=== PATIENT | female | born 1955 | race Caucasian/White ===

== ENCOUNTER 2019-08-26 16:24 | Emergency (ER) | payer BC ==
--- NOTE | 2019-08-26 16:43 | ERPHSYRPT ---
- History of Present Illness Time Seen by Provider: 08/26/19 16:42 Source: patient Exam Limitations: no limitations Patient Subjective Stated Complaint: pt states that she fell off her porch, when she fell she states that she heard a pop, pt states that she did not have swelling to feet today, pt stated that she was unable to put weight on her ankle after fall, pt states 3/10 pain to left ankle Triage Nursing Assessment: pt came to er via ambulance, pt has swelling and disformation to left ankle, postive pulse above and below injury, quick cap refill, vitals wnl, Physician History: 63 y/o obese white female fell after stepping off porch step. pt heard/felt a pop left ankle. also right ankle rolled. pt could bear weight on right side but not on left. Method of Injury: twisted Occurred: just prior to arrival Quality: aching, throbbing Severity of Pain-Max: mild Severity of Pain-Current: mild Modifying Factors: Improves With: movement Associated Symptoms: popping sensation (left) Allergies/Adverse Reactions: Sulfa (Sulfonamide Antibiotics) Allergy (Verified 08/26/19 16:39) WAS TOLD BY HER MOTHER THAT SHE WAS ALLERGIC Home Medications: Ibuprofen [IBUPROFEN 400 MG TABLET] 2 tablet PO Q12H PRN PRN 03/27/14 [History] Aspirin 81 mg PO DAILY 04/19/14 [History] Benazepril HCl [Lotensin] 20 mg PO DAILY 04/19/14 [History] Amlodipine Besylate 5 mg PO DAILY 08/26/19 [History] Atorvastatin Calcium 10 mg PO HS 08/26/19 [History] Chlorthalidone 25 mg PO DAILY 08/26/19 [History] Metformin HCl 1,000 mg PO BID 08/26/19 [History] Omeprazole 40 mg PO DAILY 08/26/19 [History] glipiZIDE [Glipizide] 10 mg PO DAILY 08/26/19 [History] Hx Tetanus, Diphtheria Vaccination/Date Given: No Hx Influenza Vaccination/Date Given: No Hx Pneumococcal Vaccination/Date Given: No - Review of Systems Constitutional: No Symptoms Eyes: No Symptoms Ears, Nose, & Throat: No Symptoms Respiratory: No Symptoms Cardiac: No Symptoms Abdominal/Gastrointestinal: No Symptoms Genitourinary Symptoms: No Symptoms Musculoskeletal: Fall, Injury (bilat ankles) Skin: No Symptoms Neurological: No Symptoms Psychological: No Symptoms Endocrine: No Symptoms Hematologic/Lymphatic: No Symptoms Immunological/Allergic: No Symptoms All Other Systems: Reviewed and Negative - Past Medical History Pertinent Past Medical History: Yes Neurological History: No Pertinent History ENT History: No Pertinent History Cardiac History: Hypertension Respiratory History: Asthma, Bronchitis, Pneumonia Endocrine Medical History: Diabetes Type II Musculoskeletal History: No Pertinent History GI Medical History: Gallbladder Disease Psycho-Social History: No Pertinent History Female Reproductive Disorders: Other Other Medical History: RT HAND SWELLING, hysterectomy - Past Surgical History Past Surgical History: Yes Gastrointestinal: Cholecystectomy Female Surgical History: Section, Hysterectomy - Social History Smoking Status: Former smoker How long have you smoked: 14 years Exposure to second hand smoke: No Drug Use: none Patient Lives Alone: Yes - Female History Hx Now: No - Nursing Vital Signs Nursing Vital Signs: Initial Vital Signs Temperature 98.8 F 08/26/19 16:25 Pulse Rate 81 08/26/19 16:25 Respiratory Rate 15 08/26/19 16:25 Blood Pressure 122/102 08/26/19 16:25 O2 Sat by Pulse Oximetry 92 L 08/26/19 16:25 Pain Scale Pain Intensity 0 - Physical Exam General Appearance: no apparent distress, alert, anxiety Eyes, Ears, Nose, Throat Exam: normal ENT inspection, moist mucous membranes Neck Exam: normal inspection, non-tender, supple, full range of motion Cardiovascular/Respiratory Exam: chest non-tender Gastrointestinal/Abdominal Exam: non-tender Back Exam: normal inspection, normal range of motion, vertebral tenderness, No CVA tenderness Hips Exam: bilateral: non-tender, normal inspection, normal range of motion, no evidence of injury Legs Exam: bilateral leg: non-tender, normal inspection, normal range of motion , no evidence of injury Knees Exam: bilateral knee: non-tender, normal inspection, normal range of motion, no evidence of injury Ankle Exam: bilateral ankle: limited range of motion, pain, soft tissue tenderness, swelling Foot Exam: bilateral foot: non-tender, normal inspection, normal range of motion , no evidence of injury Neuro/Tendon Exam: normal sensation, normal motor functions, normal tendon functions, responds to pain Mental Status Exam: alert, oriented x 3, cooperative Skin Exam: normal color, warm, dry SpO2 Interpretation: borderline oxygenation SpO2: 92 O2 Delivery: Room Air Procedures - Splinting Location of Splint: Left, Right (ankle), Ankle Type of Splint: Orthoglass Short Leg Splint Splint Applied By: ED Nurse Pre-Proc Neuro Vasc Exam: normal Post-Proc Neuro Vasc Exam: neurovascular intact, good alignment Ordered Tests: Active Orders 24 hr Category Date Time Status IV Insertion STAT Care 08/26/19 17:33 Active Splint STAT Care 08/26/19 17:51 Active Splint STAT Care 08/26/19 17:52 Active ANKLE (3 VIEWS) Stat Exams 08/26/19 16:43 Taken ANKLE (3 VIEWS) Stat Exams 08/26/19 16:43 Taken ANKLE (3 VIEWS) Stat Exams 08/26/19 18:11 Taken CBC Stat Lab 08/26/19 19:38 Ordered CMP Stat Lab 08/26/19 19:38 Ordered Medication Summary Discontinued Medications Generic Name Dose Route Start Last Admin Trade Name Freq PRN Reason Stop Dose Admin Hydromorphone HCl 1 mg 08/26/19 17:33 08/26/19 17:53 Hydromorphone 1 Mg/Ml Ampule IV 08/26/19 17:34 1 mg STAT ONE Administration Hydromorphone HCl Confirm 08/26/19 17:51 Hydromorphone 1 Mg/Ml Ampule Administered 08/26/19 17:52 Dose 1 mg .ROUTE .STK-MED ONE Ondansetron HCl 4 mg 08/26/19 17:33 08/26/19 17:53 Zofran 4 Mg/2 Ml Vial IV 08/26/19 17:34 4 mg STAT ONE Administration Ondansetron HCl Confirm 08/26/19 17:50 Zofran 4 Mg/2 Ml Vial Administered 08/26/19 17:51 Dose 4 mg .ROUTE .STK-MED ONE - Progress Progress: improved, pain not gone completely, re-examined Progress Note: 08/26/19 17:30 xray right ankle-nondisplaced right distal fibula; xray left ankle-displaced fx distal fibula and tibia. 08/26/19 19:34 at 1720 called ortho logging operations inspector. dr. egan orthopedic surgeon returned call at 1830. he states pt needs to be admitted, pain control. surgery likely for left ankle and not for right ankle. he states call hospitalist and consult him. 08/26/19 20:01 spoke with [facility] hospitalist, dr. silver. he accepts pt in transfer. Counseled pt/family regarding: diagnosis, need for follow-up, rad results - Departure Departure Disposition: Transfer Clinical Impression: Fracture of fibula, right, closed, Closed fracture of distal end of left fibula and tibia Condition: Stable Critical Care Time: No Referrals: BALTA EGAN [Primary Care Provider] -
[2019-08-26] MEDS ORDERED: Hydromorphone 1 mg/ml Ampule IV ONE (17:33)
[2019-08-26] MEDS ORDERED: Zofran 4 MG/2 ML VIAL IV ONE (17:33)
[2019-08-26] MEDS ORDERED: Zofran 4 MG/2 ML VIAL ONE (17:50)
[2019-08-26] MEDS ORDERED: Hydromorphone 1 mg/ml Ampule ONE (17:51)
[2019-08-26 20:05] LABS: Hematocrit 32.2 % (35-47); Hemoglobin 10.1 gm/dl (12.0-16.0); Mean Cell Volume 85.9 fl (78-100); Mean Corpuscular Hemoglobin 26.9 pg (26-32); Mean Corpuscular Hgb Concent. 31.4 g/dl (32-36); Mean Platelet Volume 9.9 fl (6-9.5); Platelet Count 376 K/mm3 (150-450); Red Blood Count 3.75 M/mm3 (4.1-5.4); Red Cell Distribution Width 15.6 % (11.5-14.0); White Blood Count 10.7 K/mm3 (4.0-10.5)
[2019-08-26 20:19] LABS: ALBUMIN 4.2 g/dL (3.5-5.0); ANION GAP 15.8 MEQ/L (5-15); BILIRUBIN,TOTAL 0.3 mg/dL (0.2-1.3); Calcium 9.8 mg/dL (8.4-10.2); Creatinine 1 1.53 mg/dL (0.52-1.04); Potassium 4.1 mmol/L (3.5-5.1); Total Protein 7.4 g/dL (6.3-8.2)
[2019-08-26 21:35] VITALS: BP 126/82; PULSE 80; O2SAT 94
--- NOTE | 2019-08-27 08:50 | XRAY ---
Indication: Pain following injury. Comparison: None 3 views of the left ankle demonstrates comminuted/angulated fracture of the distal tibia shaft and angulated fracture of the adjacent fibula with soft tissue swelling. Incidental small cuboid accessory ossicle. No other bony, articular, or soft tissue abnormalities.
--- NOTE | 2019-08-27 08:52 | XRAY ---
Indication: Post reduction. Comparison: Taken earlier in the day. 3 views of the left ankle demonstrates new posterior splint material. Distal tibia/fibula fractures are improved in apposition/alignment, near-anatomic. Stable soft tissue swelling and heel spurs. Remaining ankle unremarkable.
--- NOTE | 2019-08-27 08:54 | XRAY ---
Indication: Pain following injury. Comparison: None 3 views of the right ankle demonstrates nondisplaced fractures of the lateral malleolus and base 5th metatarsal with soft tissue swelling. Incidental tiny medial malleolus tip heterotopic ossification and small heel spurs. Remaining ankle unremarkable.
== END 2019-08-26 21:35 | disposition short-term general hospital (02) ==
LOC: ED 16:24
DX: S82.401A Unspecified fracture of shaft of right fibula, initial encounter for closed fracture (principal); S82.832A Other fracture of upper and lower end of left fibula, initial encounter for closed fracture; S82.302A Unspecified fracture of lower end of left tibia, initial encounter for closed fracture; W10.8XXA Fall (on) (from) other stairs and steps, initial encounter; X50.1XXA Overexertion from prolonged static or awkward postures, initial encounter; Y93.9 Activity, unspecified; I10 Essential (primary) hypertension; E11.9 Type 2 diabetes mellitus without complications; Z79.899 Other long term (current) drug therapy
CPT/HCPCS: 29505; 36000; 36415; 73610; 80053; 85027; 96374; 99285; J1170; J2405

== ENCOUNTER 2019-10-10 06:40 | Day surgery (SDC) | payer BC ==
[~2019-10-10 06:40] MED LIST: Lactated Ringers 1,000 ML IV SCH
[2019-10-10] MEDS ORDERED: Lactated Ringers 1,000 ML IV ONE (07:07)
[2019-10-10] MEDS ORDERED: DIPRIVAN 200 MG/20 ML IV ONE (07:53)
[2019-10-10 08:40] VITALS: O2SAT 95
--- NOTE | 2019-10-10 08:54 | OP ---
SURGERY DATE/TIME: 10/10/2019 0753 PREOPERATIVE DIAGNOSIS: Nausea. POSTOPERATIVE DIAGNOSIS: Moderate gastritis. PROCEDURE: Esophagogastroduodenoscopy biopsy with cold forceps. SURGEON: Dr. Alfaro. ANESTHESIA: Medications were given by the anesthesia department. BRIEF HISTORY: The patient is a 63 year old who presents now for chronic nausea. She reports that this dates back to approximately two months ago at which time she had broken her leg. She spent five days at [facility] and time at [facility]. She reports the nausea continued to get worse. She reports that she was taking ibuprofen two tablets a day prior to the time she broke her leg but has not been taking it since that time. She also reports previous cholecystectomy in 2009. The patient denies any bowel changes otherwise. The patient was felt the need to have endoscopic evaluation. She was appraised of the risks of the procedure including the risk of perforation, phlebitis, untoward reaction to medication, bleeding and missed lesions. The patient verbalized her understanding and desired to have the procedure performed. DESCRIPTION OF PROCEDURE: The patient was given the medications by the anesthesia department. She had continuous pulse oximetry, ECG monitoring, intermittent blood pressure monitoring and tidal CO2 monitoring during the examination. She was placed in the left lateral decubitus position. A bite block was placed and the flexible Olympus gastroscope was used to intubate the oropharynx. A view of the larynx was obtained and was normal. The scope was easily introduced in the esophagus which appeared to be normal throughout its length. The stomach was entered where normal gastric rugal folds were seen and these distended nicely with insufflation of air. The scope was passed along the greater curvature of the stomach to the antrum which appeared to be moderately erythematous. No erosions or ulcerations were encountered. The pylorus was encountered and intubated. The duodenum inspected and found to be normal. The scope is withdrawn towards the stomach. A retroflex view was obtained of the lesser curvature, fundus and cardia regions of the stomach and these appeared to be essentially normal. The scope was then redirected towards the gastric antrum and biopsies were obtained using cold biopsy forceps to rule out the presence of Helicobacter pylori-type organisms. The scope was then removed from the patient who tolerated the procedure well and was sent back to the hospital [facility] in good condition.
[2019-10-10 09:12] VITALS: BP 132/72; PULSE 64
== END 2019-10-10 08:55 | disposition home or self-care (01) ==
LOC: SDC 06:40
PROVIDERS: ATTEND Family Medicine
DX: K29.70 Gastritis, unspecified, without bleeding (principal); K21.9 Gastro-esophageal reflux disease without esophagitis; E11.9 Type 2 diabetes mellitus without complications; I10 Essential (primary) hypertension; J44.9 Chronic obstructive pulmonary disease, unspecified; Z79.899 Other long term (current) drug therapy
CPT/HCPCS: 82962; J2704

== ENCOUNTER 2019-11-24 10:59 | Emergency (ER) | payer BC ==
--- NOTE | 2019-11-24 11:16 | ERPHSYRPT ---
- History of Present Illness Time Seen by Provider: 11/24/19 11:13 Source: patient Exam Limitations: no limitations Patient Subjective Stated Complaint: pt here for sob ,cough and dizziness today , she has been sob since sunday and was seen and has a cxr, she was placed on antiboitcs at the time,. she states when she got up this morning she about passed out ,she is not taking her metformin , she recently had bilat tib/fib fracture 08/2019 and had surgery Triage Nursing Assessment: pt alert, resp easy, skin w/d/pale , moves all ext well, strong radial pulse Physician History: the patient is a 63-year-old female with a past medical history significant for diabetes mellitus and hypertensionwho presents with a chief complaint near syncope. Onset was around 10:30 this morning. She states that she just had been using the bathroom, specifically urinating when she was washing her hands at the sink and felt lightheaded as if she was going to pass out. She then sat on the floor for a moment before her symptoms resolved. She does have some dizziness with standing that would resolve whenever she would sit down or lie flat. Of note, the patient reportedly started having some shortness of breath and a cough last Sunday and was seen at an urgent care and had a chest x-ray that was reportedly normal but was started empirically on antibiotic therapy, specifically Cipro which she was told to take for 10 days. She denies fever, chills, productive cough, hemoptysis, history of DVT/PE, heart disease, chest pain, nausea, vomiting upper pole he is had some diarrhea over the past week and decreased appetite because the antibiotic reportedly has decreased her ability to "taste". Of note, the patient also endorsed have a 30 pound weight loss since she had her leg fracture last fall/summer and has not had any dose adjustment in her antihypertensives. She's not starting any additional new medications or had any recent increase in her antihypertensives. She reports that she's not been taking her metformin as prescribed. Timing/Duration: today Associated Symptoms: shortness of breath, cough, other (Near syncope), No nausea , No vomiting, No abdominal pain, No chest pain, No fever, No headaches, No loss of appetite, No rash Allergies/Adverse Reactions: Sulfa (Sulfonamide Antibiotics) Allergy (Verified 11/24/19 11:09) WAS TOLD BY HER MOTHER THAT SHE WAS ALLERGIC Home Medications: Benazepril HCl [Lotensin] 20 mg PO DAILY 04/19/14 [History] Amlodipine Besylate 5 mg PO DAILY 08/26/19 [History] Atorvastatin Calcium 10 mg PO HS 08/26/19 [History] Metformin HCl 1,000 mg PO BID 08/26/19 [History] glipiZIDE [Glipizide] 10 mg PO DAILY 08/26/19 [History] Tramadol HCl 50 mg [Ultram 50 mg] 50 mg PO Q8H PRN PRN 10/10/19 [History] Doxycycline Hyclate 1 ea BID 11/24/19 [History] Omeprazole 40 mg DAILY 11/24/19 [History] Hx Tetanus, Diphtheria Vaccination/Date Given: No Hx Influenza Vaccination/Date Given: No Hx Pneumococcal Vaccination/Date Given: No Immunizations Up to Date: Yes - Review of Systems Constitutional: No Fever, No Chills Eyes: No Symptoms Ears, Nose, & Throat: No Symptoms, No Nose Congestion Respiratory: Cough, Dyspnea, Dyspnea on Exertion (BANEGAS), No Stridor, No Wheezing Cardiac: No Chest Pain, No Edema, No Palpitations, No Syncope, No PND Abdominal/Gastrointestinal: Diarrhea, Appetite Changes, No Nausea, No Vomiting Genitourinary Symptoms: No Symptoms Musculoskeletal: No Symptoms Neurological: Dizziness, No Headache Psychological: No Symptoms Endocrine: No Symptoms Hematologic/Lymphatic: No Symptoms Immunological/Allergic: No Symptoms All Other Systems: Reviewed and Negative - Past Medical History Pertinent Past Medical History: Yes Neurological History: No Pertinent History ENT History: No Pertinent History Cardiac History: High Cholesterol, Hypertension Respiratory History: Bronchitis Endocrine Medical History: Diabetes Type II Musculoskeletal History: Fractures GI Medical History: Gallbladder Disease History: No Pertinent History Psycho-Social History: No Pertinent History Female Reproductive Disorders: Other Other Medical History: SX HX: CHOLESTECTOMY, HYSTERECTOMY - Past Surgical History Past Surgical History: Yes Neuro Surgical History: No Pertinent History Cardiac: No Pertinent History Respiratory: Chest Surgery Gastrointestinal: Cholecystectomy Genitourinary: No Pertinent History Musculoskeletal: Orthopedic Surgery, Other Female Surgical History: Section, Hysterectomy Other Surgical History: L big toe reattached, surgical fixation of L leg - Social History Smoking Status: Former smoker How long have you smoked: 14 years Exposure to second hand smoke: No Drug Use: none Patient Lives Alone: Yes - Female History Hx Last Menstrual Period: post Hx Now: No - Nursing Vital Signs Nursing Vital Signs: Initial Vital Signs Temperature 97.4 F 11/24/19 11:00 Pulse Rate 102 H 11/24/19 11:00 Respiratory Rate 20 11/24/19 11:00 Blood Pressure 98/78 11/24/19 11:00 O2 Sat by Pulse Oximetry 94 L 11/24/19 11:00 Pain Scale Pain Intensity 0 - Physical Exam General Appearance: no apparent distress, alert Eye Exam: PERRL/EOMI Ears, Nose, Throat Exam: normal ENT inspection Neck Exam: normal inspection, supple, No JVD Respiratory Exam: normal breath sounds, lungs clear, airway intact, No chest tenderness, No respiratory distress, No diminished breath sounds, No accessory muscle use, No prolonged expirations, No crackles/rales, No rhonchi, No wheezing , No pleural rub Cardiovascular Exam: normal peripheral pulses, tachycardia, capillary refill <2 sec, No murmur, No friction rub Gastrointestinal/Abdomen Exam: soft, No tenderness, No distention Rectal Exam: deferred Back Exam: normal inspection Extremity Exam: normal inspection Neurologic Exam: alert, oriented x 3, cooperative Skin Exam: normal color, warm, dry, rash, No petechiae, No jaundice SpO2 Interpretation: normal SpO2: 94 O2 Delivery: Room Air - Course Nursing assessment & vital signs reviewed: Yes EKG Interpreted by Me: RATE, Sinus Rhythm, Right [place] Deviation, Right Bundle Branch Block, Q-wave, NORMAL ST-T - Radiology Exams Chest X-ray Interpretation: Reviewed by me, Negative Ordered Tests: Active Orders 24 hr Category Date Time Status Supervisor Slitting And Shipping STAT Care 11/24/19 11:15 Active EKG-ER Only STAT Care 11/24/19 11:15 Active IV Insertion STAT Care 11/24/19 11:15 Active CHEST 2 VIEWS (PA AND LAT) Stat Exams 11/24/19 12:11 Completed PULMONARY PERF VENTILATION [NUCMED] Stat Exams 11/24/19 12:21 Completed BMP Stat Lab 11/24/19 11:34 Completed BMP Stat Lab 11/24/19 16:45 Completed CBC W DIFF Stat Lab 11/24/19 11:34 Completed D-DIMER QUANTITATIVE Stat Lab 11/24/19 12:11 Completed NT PRO BNP Stat Lab 11/24/19 11:34 Completed PROTIME WITH INR Stat Lab 11/24/19 12:11 Completed PTT Stat Lab 11/24/19 12:11 Completed TROPONIN Stat Lab 11/24/19 11:34 Completed TROPONIN Stat Lab 11/24/19 16:45 Completed Medication Summary Discontinued Medications Generic Name Dose Route Start Last Admin Trade Name Freq PRN Reason Stop Dose Admin Enoxaparin Sodium 90 mg 11/24/19 12:18 11/24/19 12:40 Enoxaparin Sodium 1 mg/kg (90 mg) 11/24/19 12:19 90 mg SQ Administration ONCE STA Enoxaparin Sodium Confirm 11/24/19 12:40 Enoxaparin Sodium Administered 11/24/19 12:41 Dose 120 mg SQ .STK-MED ONE Sodium Chloride 1,000 mls @ 999 mls/hr 11/24/19 11:26 11/24/19 13:15 Sodium Chloride 0.9% 1000 Ml IV 11/24/19 12:26 Infused .Q1H1M STA Infusion Sodium Chloride Confirm 11/24/19 11:32 Sodium Chloride 0.9% 1000 Ml Administered 11/24/19 11:33 Dose 1,000 mls @ ud .ROUTE .STK-MED ONE Sodium Chloride 1,000 mls @ 999 mls/hr 11/24/19 11:45 11/24/19 13:16 Sodium Chloride 0.9% 1000 Ml IV 11/24/19 12:45 Infused .Q1H1M STA Infusion Sodium Chloride Confirm 11/24/19 12:40 Sodium Chloride 0.9% 1000 Ml Administered 11/24/19 12:41 Dose 1,000 mls @ ud .ROUTE .STK-MED ONE Lab/Rad Data: Laboratory Result Diagrams 11/24/19 11:34 11/24/19 16:45 Laboratory Results 11/24/19 11/24/19 11/24/19 Range/Units 16:45 16:45 12:11 WBC (4.0-10.5) K/mm3 RBC (4.1-5.4) M/mm3 Hgb (12.0-16.0) gm/dl Hct (35-47) % MCV (78-100) fl MCH (26-32) pg MCHC (32-36) g/dl RDW (11.5-14.0) % Plt Count (150-450) K/mm3 MPV (7.5-11.0) fl Gran % (36.0-66.0) % Eos # (Auto) (0-0.5) Absolute Lymphs (auto) (1.0-4.6) Absolute Monos (auto) (0.0-1.3) Lymphocytes % (24.0-44.0) % Monocytes % (0.0-12.0) % Eosinophils % (0.00-5.0) % Basophils % (0.0-0.4) % Absolute Granulocytes (1.4-6.9) Basophils # (0-0.4) PT 13.1 H (9.95-12.35) SECONDS INR 1.16 (0.8-3.0) APTT 26.2 (25.3-37.0) SECONDS D-Dimer 35510 H* (215-500) ng/mL Sodium 136 L (137-145) mmol/L Potassium 3.7 (3.5-5.1) mmol/L Chloride 99 (98-107) mmol/L Carbon Dioxide 23 (22-30) mmol/L Anion Gap 17.4 H (5-15) MEQ/L BUN 30 H (7-17) mg/dL Creatinine 1.63 H (0.52-1.04) mg/dL Estimated GFR 34.0 ML/MIN Glucose 287 H (74-106) mg/dL Calcium 9.7 (8.4-10.2) mg/dL Troponin I 0.079 H* (0.000-0.034) ng/mL NT-Pro-B Natriuret Pep (0-900) pg/mL 11/24/19 11/24/19 Range/Units 11:34 11:34 WBC 11.7 H (4.0-10.5) K/mm3 RBC 4.40 (4.1-5.4) M/mm3 Hgb 11.8 L (12.0-16.0) gm/dl Hct 36.6 (35-47) % MCV 83.2 (78-100) fl MCH 26.8 (26-32) pg MCHC 32.2 (32-36) g/dl RDW 14.6 H (11.5-14.0) % Plt Count 273 (150-450) K/mm3 MPV 11.4 H (7.5-11.0) fl Gran % 78.4 H (36.0-66.0) % Eos # (Auto) 0.11 (0-0.5) Absolute Lymphs (auto) 1.73 (1.0-4.6) Absolute Monos (auto) 0.64 (0.0-1.3) Lymphocytes % 14.8 L (24.0-44.0) % Monocytes % 5.5 (0.0-12.0) % Eosinophils % 0.9 (0.00-5.0) % Basophils % 0.4 (0.0-0.4) % Absolute Granulocytes 9.13 H (1.4-6.9) Basophils # 0.05 (0-0.4) PT (9.95-12.35) SECONDS INR (0.8-3.0) APTT (25.3-37.0) SECONDS D-Dimer (215-500) ng/mL Sodium 134 L (137-145) mmol/L Potassium 3.3 L (3.5-5.1) mmol/L Chloride 96 L (98-107) mmol/L Carbon Dioxide 22 (22-30) mmol/L Anion Gap 19.8 H (5-15) MEQ/L BUN 30 H (7-17) mg/dL Creatinine 1.81 H (0.52-1.04) mg/dL Estimated GFR 30.1 ML/MIN Glucose 368 H (74-106) mg/dL Calcium 9.7 (8.4-10.2) mg/dL Troponin I 0.061 H* (0.000-0.034) ng/mL NT-Pro-B Natriuret Pep 5760 H (0-900) pg/mL - Progress Progress: improved Progress Note: 11/24/19 12:39 the patient's troponin is mildly elevated with an increased BNP in addition to some hypertension and hypoxia and shortness of breath. The patient overall does not appear to be line overloaded. The nurses not obtain EKG as if he had otherwise been ordered some time ago. Differential this time includes ACS, 6 new-onset CHF, for possible so massive PE. She does have some evidence of CT in radiology when I perform a CT of her chest with a creatinine of 1.8. A car ahead of her cardiac echo regular rate with Lovenox in radiology he is able to perform a VQ scan this afternoon. possibility patient's orthostasis may be related to her antihypertensive use in addition to having some volume depletion from her reported diarrhea in addition to her report a 30 pound weight loss she' s had over the past few months since her diagnosis of a broken tibia/fibula. This also may be contributing to her symptoms and therefore IV fluids were ordered. 11/24/19 13:12 the patient's chest x-ray is negative with the exception of some hyperexpansion and her d-dimer is 18,000. Given that her troponin is mildly elevated in addition to an elevated BNP negative chest x-ray and some shortness of breath with some intermittent hypoxia that is now resolved with a nasal cannula am highly suspicious the patient may have a submassive PE. Again radiology will not obtain a CT of her chest because of her creatinine being 1.8. VQ scan is currently pending. The patient received her Lovenox. 11/24/19 14:36 Nuclear Medicine is now in the ED to take the patient did a VQ scan 11/24/19 15:26 The patient is being wheeled back from radiology and just got her V/Q scan awaiting formal radiology review. 11/24/19 16:05 V/Q scan showing small left lower lobe matched ventilation/perfusion defect. No corresponding abnormality on the same day chest radiograph. Low probability for pulmonary embolus. 11/24/19 16:06 Currently contacting [facility] to see if they will accept to perform CTA chest given my high suspicion for a PE. Will inquire about EKOS. 11/24/19 16:32 I discussed the case with the ED physician at [facility] who will discuss the case with the hospitalist and call back. I expressed my concern the patient will need a CTA chest to r/o PE and ? EKOS. 11/24/19 17:44 [facility] recommending transfer to [facility] and Dr. Thakkar at [facility] has agreed to accept. 11/25/19 05:39 Counseled pt/family regarding: lab results, diagnosis, rad results - Departure Departure Disposition: Transfer ([facility] ED) Clinical Impression: Dyspnea, Near syncope, Chronic kidney disease (CKD), Elevated troponin, Elevated brain natriuretic peptide (BNP) level Condition: Stable Critical Care Time: Yes Critical Care Time(excluding separately billable procedures): Critical 105-134 mins Referrals: BALTA EGAN [Primary Care Provider] - Plan of Treatment: The patient was ultimately transferred to [facility] ED to hopefully undergo CTA chest to eval for PE given my strong clinical suspicion for this. I don't know what else would likely explain her symptoms at this point and this needs to be r/o in a facility with ICU and EKOS capability if she does indeed have a submassive PE. Given her episodes of hypotension, she could even be having a massive PE, but lytics were withheld because I could not prove this. She received Lovenox in the ED for empiric coverage. She was stable at the time the transport team arrived to transfer her to [facility]. The patient agreed to transfer. All questions were answered.
[2019-11-24] MEDS ORDERED: Sodium Chloride 0.9% 1000 ML 1,000 ML IV STA ×2 (11:26→11:45)
[2019-11-24] MEDS ORDERED: Sodium Chloride 0.9% 1000 ML 1,000 ML ONE ×2 (11:32→12:40)
[2019-11-24 11:38] LABS: Absolute Neutrophil Ct (ANC) 9.13 (1.4-6.9); BASOPHIL % 0.4 % (0.0-0.4); Basophil (Absolute #) 0.05 (0-0.4); Eosinophil % 0.9 % (0.00-5.0); Eosinophil (Absolute #) 0.11 (0-0.5); Hematocrit 36.6 % (35-47); Hemoglobin 11.8 gm/dl (12.0-16.0); Lymphocyte (Absolute #) 1.73 (1.0-4.6); Lymphocytes % 14.8 % (24.0-44.0); Mean Cell Volume 83.2 fl (78-100); Mean Corpuscular Hemoglobin 26.8 pg (26-32); Mean Corpuscular Hgb Concent. 32.2 g/dl (32-36); Mean Platelet Volume 11.4 fl (7.5-11.0); Monocyte (Absolute #) 0.64 (0.0-1.3); Monocytes % 5.5 % (0.0-12.0); Neutrophil % 78.4 % (36.0-66.0); Platelet Count 273 K/mm3 (150-450); Red Cell Distribution Width 14.6 % (11.5-14.0); White Blood Count 11.7 K/mm3 (4.0-10.5)
[2019-11-24 11:55] LABS: ANION GAP 19.8 MEQ/L (5-15); Calcium 9.7 mg/dL (8.4-10.2); Creatinine 1 1.81 mg/dL (0.52-1.04); Potassium 3.3 mmol/L (3.5-5.1)
[2019-11-24 12:04] LABS: TROPONIN 0.061 ng/mL (0.000-0.034)
[2019-11-24] MEDS ORDERED: ENOXAPARIN SODIUM SQ STA (12:18)
[2019-11-24 12:28] LABS: INR 1.16 (0.8-3.0); PROTIME 13.1 SECONDS (9.95-12.35)
[2019-11-24 12:31] LABS: PTT 26.2 SECONDS (25.3-37.0)
[2019-11-24] MEDS ORDERED: ENOXAPARIN SODIUM SQ ONE (12:40)
--- NOTE | 2019-11-24 12:53 | XRAY ---
Indication: Dyspnea. Comparison: November 20, 2019. PA/lateral chest remains hyperinflated and clear. Heart is not enlarged. No new/acute findings.
--- NOTE | 2019-11-24 15:58 | XRAY ---
Indication: Chest discomfort, short of breath, and elevated d-dimer for 5 days. Patient initially inhaled 35.6 mCi of aerosolized technetium 99 DTPA for the ventilation portion of exam. Patient then received 5.2 mCi technetium 99 MAA for the perfusion portion of exam. Multiple planar images obtained. Comparison: None Initial ventilation images demonstrates mild increased radiopharmaceutical activity in the left lower lobe. Query retention due to chronic obstructive disease versus radiopharmaceutical clumping. Small subsegmental ventilation defect in the superior left lower lobe. No other ventilation defect. Perfusion images also demonstrates matched subsegmental perfusion defect in the superior left lower lobe. No other perfusion defects. Impression: Small left lower lobe matched ventilation/perfusion defect. No corresponding abnormality on same-day chest radiograph. Low probability for pulmonary embolus.
[2019-11-24 17:33] LABS: ANION GAP 17.4 MEQ/L (5-15); Calcium 9.7 mg/dL (8.4-10.2); Creatinine 1 1.63 mg/dL (0.52-1.04); Potassium 3.7 mmol/L (3.5-5.1)
[2019-11-24 18:05] VITALS: BP 122/79; PULSE 95
[2019-11-25 05:46] VITALS: O2SAT 94
== END 2019-11-24 20:07 | disposition short-term general hospital (02) ==
LOC: ED 10:59
DX: R06.00 Dyspnea, unspecified (principal); R55 Syncope and collapse; R74.8 Abnormal levels of other serum enzymes; R79.89 Other specified abnormal findings of blood chemistry; I12.9 Hypertensive chronic kidney disease with stage 1 through stage 4 chronic kidney disease, or unspecified chronic kidney disease; E11.9 Type 2 diabetes mellitus without complications; Z79.4 Long term (current) use of insulin; Z79.899 Other long term (current) drug therapy
CPT/HCPCS: 36415; 71046; 78582; 80048; 83880; 84484; 85025; 85379; 85610; 85730; 93005; 93041; 96360; 96361; 96372; 99285; A9540; A9567; J1650